=== PATIENT | male | born 1990 | race African-American/Black ===

== ENCOUNTER 2019-06-29 12:25 | Emergency (ER) | payer BC ==
--- NOTE | 2019-06-29 13:18 | ULT ---
Scrotal sonogram with duplex evaluation HISTORY: Scrotal pain. FINDINGS: Within the right testicle, there are 2 very small hyperechoic foci without definite posteri or shadowing. The largest is 0.3 cm greatest diameter. Good color and spectral Doppler flow within each testicle. No evidence of varicocele or inguinal hernia. IMPRESSION: No evidence of testicular torsion or aggressive mass. The small hyperechoic foci within the right testicle may represent dystrophic calcification. Please c onsider nonemergent urologic evaluation and potentially a sonogram follow-up to evaluate for stability.
[2019-06-29 14:27] LABS: Bilirubin Negative (Negative); Blood, Urine Negative (Negative); Clarity Clear (Clear); Glucose, Urine (Dipstick) Normal (Negative); Leukocyte Negative Leu/uL (Negative); Nitrite Negative (Negative); Protein, Urine (Dipstick) Negative (Neg-Trace); Urobilinogen Normal mg/dL (Less than 2)
== END 2019-06-29 15:06 | disposition home or self-care (01) ==
LOC: ERS 12:25
DX: N50.811 Right testicular pain (principal); Z79.899 Other long term (current) drug therapy
CPT/HCPCS: 76870; 81003; 93976